=== PATIENT | female | born 1995 | race Caucasian/White ===

== ENCOUNTER 2016-09-24 10:39 | Emergency (ER) | payer BC, OTHER ==
[2016-09-24] MEDS ORDERED: Sodium Chloride 0.9% 10 ML Syringe FLUSH PRN (11:26)
[2016-09-24] MEDS ORDERED: Ketorolac 30 MG/ML SDV IVPUSH ONE (11:26)
[2016-09-24] MEDS ORDERED: Sodium Chloride 0.9% 1,000 ML IV ONE (11:26)
[2016-09-24] MEDS ORDERED: Ondansetron 4 MG/2 ML SDV IVPUSH ONE (11:26)
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
[2016-09-24 13:10] VITALS: BP 104/62
== END 2016-09-24 13:05 | disposition home or self-care (01) ==
LOC: JD.ED 10:39 → MERGE 10:39 → JD.ED 13:05
DX: R11.2 Nausea with vomiting, unspecified (principal); F17.210 Nicotine dependence, cigarettes, uncomplicated; J45.909 Unspecified asthma, uncomplicated; Z79.899 Other long term (current) drug therapy
CPT/HCPCS: 36415; 80053; 80306; 81025; 85025; 96361; 96374; 96375; 99283; J1885; J2405; J7040; J7050; 99284

== ENCOUNTER 2017-11-04 10:03 | Emergency (ER) | payer OTHER ==
--- NOTE | 2017-11-04 11:02 | EDM.PDOC ---
ED HPI GENERAL MEDICAL PROBLEM - General Chief Complaint: Chest Pain Stated Complaint: CHEST PAIN Time Seen by Provider: 11/04/17 10:14 Source of Information: Reports: Patient History Limitations: Reports: No Limitations - History of Present Illness INITIAL COMMENTS - FREE TEXT/NARRATIVE: The patient presents with left sided chest pain. This started about 0930 this morning. The pain is sharp and she has tingling in her shoulder and arm. The pain is made worse but sitting up or taking a deep breath. She has no fever, chills, cough, abdominal pain, nausea or vomiting. She does have some mild shortness of breath. She has no history of DVT or PE. She has no swelling her her legs or pain. Onset: Sudden Duration: Hour(s): Location: Reports: Chest Quality: Reports: Sharp Severity: Moderate Improves with: Reports: Immobilization Worsens with: Reports: Breathing (and sitting up) Associated Symptoms: Reports: Chest Pain, Shortness of Breath. Denies: Cough, Fever/Chills, Nausea/Vomiting Left Chest Pain Score (Numeric/FACES): 8 - Related Data Allergies Allergy/AdvReac Type Severity Reaction Status Date / Time No Known Allergies Allergy Verified 09/24/16 10:52 Home Meds: Home Meds Albuterol Sulfate [Albuterol Sulfate HFA] 8.5 gm IH Q4H PRN #1 hfa.aer.ad [Rx] Cetirizine [ZyrTEC] 10 mg PO DAILY 10/24/13 [History] Past Medical History - Past Health History Medical/Surgical History: Denies Medical/Surgical History Respiratory History: Reports: Asthma - Infectious Disease History Infectious Disease History: Reports: Chicken Pox Social & Family History - Family History Family Medical History: Noncontributory - Tobacco Use Smoking Status *Q: Current Some Day Smoker Years of Tobacco use: 6 Packs/Tins Daily: 0.2 - Caffeine Use Caffeine Use: Reports: None - Recreational Drug Use Recreational Drug Use: No ED ROS GENERAL - Review of Systems Review Of Systems: See Below Constitutional: Reports: No Symptoms HEENT: Reports: No Symptoms Respiratory: Reports: Shortness of Breath Cardiovascular: Reports: Chest Pain Endocrine: Reports: No Symptoms GI/Abdominal: Reports: No Symptoms : Reports: No Symptoms Musculoskeletal: Reports: No Symptoms Skin: Reports: No Symptoms ED EXAM, GENERAL - Physical Exam Exam: See Below Exam Limited By: No Limitations General Appearance: Alert, No Apparent Distress Ears: Normal External Exam Nose: Normal Inspection Head: Atraumatic, Normocephalic Neck: Normal Inspection Respiratory/Chest: No Respiratory Distress, Lungs Clear, Normal Breath Sounds Cardiovascular: Regular Rate, Rhythm, No Edema, No Murmur GI/Abdominal: Soft, Non-Tender, No Organomegaly, No Mass Back Exam: Normal Inspection Extremities: Normal Inspection EKG INTERPRETATION EKG Date: 11/04/17 Time: 10:10 Rhythm: NSR Rate (Beats/Min): 60 Center: Normal P-Wave: Present QRS: Normal ST-T: Normal QT: Normal EKG Interpretation Comments: Sinus arrhythmia Course - Vital Signs Last Recorded V/S: Last Vital Signs Temp 98.2 F 11/04/17 10:08 Pulse 72 11/04/17 10:08 Resp 18 11/04/17 10:08 BP 129/78 11/04/17 10:08 Pulse Ox 100 11/04/17 10:08 - Orders/Labs/Meds Orders: Active Orders 24 hr Category Date Time Status Cardiac Monitoring [RC] . DIRECTED Care 11/04/17 10:30 Active EKG Documentation Completion [RC] STAT Care 11/04/17 10:31 Active Chest 2V [CR] Stat Exams 11/04/17 10:32 Taken Labs: Laboratory Tests 11/04/17 11/04/17 11/04/17 Range/Units 11:03 11:03 11:03 WBC 7.25 (3.98-10.04) K/mm3 RBC 4.80 (3.98-5.22) M/mm3 Hgb 14.5 (11.2-15.7) gm/L Hct 43.7 (34.1-44.9) % MCV 91.0 (79.4-94.8) fl MCH 30.2 (25.6-32.2) pg MCHC 33.2 (32.2-35.5) g/dl RDW Std Deviation 40.9 (36.4-46.3) fL Plt Count 312 (182-369) K/mm3 MPV 10.3 (9.4-12.3) fl Neut % (Auto) 60.0 (34.0-71.1) % Lymph % (Auto) 27.2 (19.3-51.7) % [place] % (Auto) 8.1 (4.7-12.5) % Eos % (Auto) 4.3 (0.7-5.8) Baso % (Auto) 0.4 (0.1-1.2) % Neut # (Auto) 4.35 (1.56-6.13) K/mm3 Lymph # (Auto) 1.97 (1.18-3.74) K/mm3 [place] # (Auto) 0.59 H (0.24-0.36) K/mm3 Eos # (Auto) 0.31 (0.04-0.36) K/mm3 Baso # (Auto) 0.03 (0.01-0.08) K/mm3 D-Dimer, Quantitative 0.40 (0.19-0.50) mg/L Sodium 140 (136-145) mEq/L Potassium 4.0 (3.5-5.1) mEq/L Chloride 105 (98-107) mEq/L Carbon Dioxide 25 (21-32) mEq/L Anion Gap 14.0 (5-15) BUN 16 (7-18) mg/dL Creatinine 0.8 (0.55-1.02) mg/dL Est Cr Clr Drug Dosing 98.41 mL/min Estimated GFR (MDRD) > 60 (>60) mL/min BUN/Creatinine Ratio 20.0 H (14-18) Glucose 93 (74-106) mg/dL Calcium 8.8 (8.5-10.1) mg/dL Total Bilirubin 0.4 (0.2-1.0) mg/dL AST 19 (15-37) U/L ALT 24 (14-59) U/L Alkaline Phosphatase 49 (46-116) U/L Troponin I < 0.017 (0.00-0.056) ng/mL Total Protein 7.0 (6.4-8.2) g/dl Albumin 3.8 (3.4-5.0) g/dl Globulin 3.2 gm/dL Albumin/Globulin Ratio 1.2 (1-2) - Re-Assessments/Exams Free Text/Narrative Re-Assessment/Exam: 11/04/17 11:02 I ordered an EKG, CXR and labs. Her EKG shows a sinus arrhythmia with no acute changes. 11/04/17 11:40 Her CXR looks good. Her CBC and CMP look good. Her troponin and D-dimer was negative. It appears she has pleurisy. I will have her take an antiinflammatory. Departure - Departure Time of Disposition: 11:45 Disposition: Home, Self-Care 01 Condition: Good Clinical Impression: Pleurisy Referrals: PCP,None [Primary Care Provider] - Lore Gomez PA-C [Physician Personal Secretary] - 1 Week Forms: ED Department Discharge, ED Return to Work/School Form Additional Instructions: Take motrin or aleve for pain. Rest today. Please return if you are worse. - My Orders Last 24 Hours: My Active Orders 11/04/17 10:30 Cardiac Monitoring [RC] . DIRECTED 11/04/17 10:31 EKG Documentation Completion [RC] STAT 11/04/17 10:32 Chest 2V [CR] Stat - Assessment/Plan Last 24 Hours: My Active Orders 11/04/17 10:30 Cardiac Monitoring [RC] . DIRECTED 11/04/17 10:31 EKG Documentation Completion [RC] STAT 11/04/17 10:32 Chest 2V [CR] Stat
[2017-11-04 12:23] VITALS: BP 110/73
--- NOTE | 2017-11-04 12:45 | CR ---
Chest: Two views of the chest were obtained. Comparison: No prior chest x-ray. Heart size and mediastinum are normal. Lungs are clear. Bony structures are unremarkable. Impression: 1. Nothing acute is seen on two-view chest x-ray. Diagnostic code #1
== END 2017-11-04 11:50 | disposition home or self-care (01) ==
LOC: JD.ED 10:03
DX: R09.1 Pleurisy (principal); J45.909 Unspecified asthma, uncomplicated; F17.210 Nicotine dependence, cigarettes, uncomplicated; Z79.899 Other long term (current) drug therapy
CPT/HCPCS: 36415; 71046; 71046-26; 80053; 84484; 85025; 85379; 93005; 99285-25

== ENCOUNTER 2020-06-05 00:35 | Emergency (ER) | payer OTHER, BC ==
[2020-06-05 00:53] VITALS: BP 123/75; PULSE 70
--- NOTE | 2020-06-05 01:38 | EDM.PDOC ---
ED HPI GENERAL MEDICAL PROBLEM - General Chief Complaint: Respiratory Problem Stated Complaint: SOB Time Seen by Provider: 06/05/20 00:50 Source of Information: Reports: Patient History Limitations: Reports: No Limitations - History of Present Illness INITIAL COMMENTS - FREE TEXT/NARRATIVE: Ms. Alexis is a very pleasant 24-year-old woman who now presents to the ED with dyspnea, but with a more complicated history. She states that she has been getting a sharp chest pain, felt in a discreet area just left of her sternum (she points with one finger), around this time of year for the past several years. When present, the pain is made worse if she inspires deeply, although is minimized with shallow breathing. She also feels better if she pulls her left breast upward, or if she leans back and leftward in her chair. He states that she has always been told that it is due to "pleurisy". The patient states she has a presumptive diagnosis of asthma since childhood, however, she has never seen a Serging Machine Operator [employer] and has never undergone pulmonary function testing. She takes albuterol by [facility] on an as-needed basis. She states that she was seen at the walk-in clinic on 05/10/2020 for dyspnea with wheezing, without cough or fever. At that time, she did not have any chest pain. She states that a D-dimer and chest x-ray were performed, both of which were reportedly normal. She was diagnosed with an asthma exacerbation and prescribed a refill of her albuterol. She then returned to the walk-in clinic 10 days later, on 05/20/2020, for stabbing central chest pain, the same chest pain that has troubled her for years. At that time, she did not have any dyspnea, wheezing, cough, or fever. She states that no tests were performed, and that she was again diagnosed with pleurisy. She was prescribed prednisone (she does not recall the dose) 1 tablet daily for 5 days. She states that her chest pain completely resolved for several days. The patient then followed up with her PCP 1 week ago (around 05/28/2020), again for the same retrosternal chest pain. Again, no associated dyspnea, wheezing, cough, or fever. She states that no tests were performed, but that she was again diagnosed with pleurisy, and again prescribed prednisone, this time 2 tablets QAM for 5 days. She states that the steroids again completely resolved her chest pain, and that she has not had any since. She now presents with dyspnea without wheezing, cough, or fever, since Wednesday morning, 06/03/2020. She states that she took an Equate allergy pill around 17:30 last evening, but no other medications. Here in the ED, the patient is found to be hemodynamically stable, afebrile, saturating 100% on room air. Other than her recurrent chest pain, dyspnea, and occasional wheezing, the salina ent denies having a recent fever, chills, sore throat, ear pain, nasal or sinus congestion, cough, palpitations, nausea, vomiting, constipation, diarrhea, abdominal pain, urinary symptoms, recent weight gain or weight loss, recent bloody bowel movements or black bowel movements, recent joint aches, headaches, or rashes. The patient's PCP is Demetra Pinzon NP. She has an appointment to meet Chuckie Shoemaker NP, this coming 06/10/2020, however, she was under the impression that he works with an Linting Machine Operator, whereas in fact, according to the [facility] website, he works in Gastroenterol ogy/Hepatology. She has not received an influenza vaccine this season, declined an offer to receive one here in the ED. Chest Pain Score (Numeric/FACES): 4 - Related Data Allergies Allergy/AdvReac Type Severity Reaction Status Date / Time No Known Allergies Allergy Verified 06/05/20 00:45 Home Meds: Home Meds Albuterol Sulfate [Albuterol Sulfate HFA] 8.5 gm IH Q4H PRN #1 [email or web address] 10/24/13 [Rx] Cetirizine [ZyrTEC] 10 mg PO DAILY 10/24/13 [History] Past Medical History HEENT History: Reports: Allergic Rhinitis Respiratory History: Reports: Asthma (suspected, not tested) - Infectious Disease History Infectious Disease History: Reports: Chicken Pox - Past Surgical History HEENT Surgical History: Reports: Adenoidectomy, Oral Surgery (dental extractions), Tonsillectomy Social & Family History - Tobacco Use Tobacco Use Status *Q: Former Tobacco User Years of Tobacco use: 10 Packs/Tins Daily: 0.2 Month/Year Tobacco Last Used: Quit Apr 2020 - Caffeine Use Caffeine Use: Reports: None - Alcohol Use Alcohol Use History: Yes Alcohol Use Frequency: Socially - Recreational Drug Use Recreational Drug Use: Yes Drug Use in Last 12 Months: No Recreational Drug Type: Reports: Marijuana/Hashish (last smoked in 2012) - Living Situation & Occupation Living situation: Reports: Single, Alone Occupation: Employed (Office) ED ROS GENERAL - Review of Systems Review Of Systems: Comprehensive ROS is negative, except as noted in HPI. ED EXAM, GENERAL - Physical Exam Exam: See Below Exam Limited By: No Limitations General Appearance: Alert, WD/WN, No Apparent Distress Eye Exam: Bilateral Eye: EOMI, Normal Inspection Ears: Normal External Exam, Hearing Grossly Normal Nose: Normal Inspection Throat/Mouth: Normal Inspection, Normal Lips, Normal Voice, No Airway Compromise Head: Atraumatic, Normocephalic Neck: Normal Inspection, Full Range of Motion Respiratory/Chest: No Respiratory Distress, Lungs Clear, Normal Breath Sounds, No Accessory Muscle Use. No: Decreased Breath Sounds, Crackles, Rhonchi, Wheezing, Stridor, Prolonged Expiration Cardiovascular: Normal Peripheral Pulses, Regular Rate, Rhythm, No Edema, No Gallop, No JVD, No Murmur, No Rub Peripheral Pulses: 3+: Radial (L), Radial (R) GI/Abdominal: Normal Bowel Sounds, Soft, Non-Tender, No Organomegaly, No Distention, No Abnormal Bruit, No Mass Back Exam: Normal Inspection, Full Range of Motion, NT Extremities: Normal Inspection, Normal Range of Motion, No Pedal Edema, Normal Capillary Refill Neurological: Alert, Oriented, Normal Cognition, No Motor/Sensory Deficits Psychiatric: Normal Affect Skin Exam: Warm, Dry, Intact, Normal Color, No Rash #1 Interpretation EKG Date: 06/05/20 Time: 02:05 Rhythm: NSR Rate (Beats/Min): 64 [place]: Normal P-Wave: Present QRS: Normal ST-T: Normal QT: Normal Comparison: No Change (11/04/2017) Course - Vital Signs Last Recorded V/S: Last Vital Signs Temp 36.7 C 06/05/20 00:45 Pulse 70 06/05/20 00:45 Resp 18 06/05/20 00:45 BP 123/75 06/05/20 00:45 Pulse Ox 100 02/03/21 00:45 - Orders/Labs/Meds Orders: Active Orders 24 hr Category Date Time Status EKG Documentation Completion [RC] STAT Care 06/05/20 01:15 Active Chest 2V [CR] Stat Exams 06/05/20 01:14 Taken Labs: Laboratory Tests 06/05/20 06/05/20 06/05/20 Range/Units 01:27 01:33 01:33 WBC 10.14 H (3.98-10.04) K/mm3 RBC 4.68 (3.98-5.22) M/mm3 Hgb 14.1 (11.2-15.7) gm/dl Hct 43.5 (34.1-44.9) % MCV 92.9 (79.4-94.8) fl MCH 30.1 (25.6-32.2) pg MCHC 32.4 (32.2-35.5) g/dl RDW Std Deviation 42.3 (36.4-46.3) fL Plt Count 288 (182-369) K/mm3 MPV 9.9 (9.4-12.3) fl Neutrophils % (Manual) 52 (40-60) % Band Neutrophils % 0 (0-10) % Lymphocytes % (Manual) 36 (20-40) % Atypical Lymphs % 0 % Monocytes % (Manual) 8 (2-10) % Eosinophils % (Manual) 4 (0.7-5.8) % Basophils % (Manual) 0 L (0.1-1.2) Platelet Estimate Adequate Microcytosis Store Product Demonstrator RBC Morph Comment Normal D-Dimer, Quantitative (0.19-0.50) mg/L Puncture Site Rt radial ABG pH 7.42 (7.35-7.45) ABG pCO2 37.7 (35.0-45.0) mmHg ABG pO2 86.0 (80.0-100.0) mmHg ABG HCO3 24.0 (22.0-26.0) meq/L ABG O2 Saturation 97.3 H (96.0-97.0) % ABG Base Excess 0.3 (-2-2.0) Nino Test Positive O2 Delivery Device Room air Sodium 140 (136-145) mEq/L Potassium 4.0 (3.5-5.1) mEq/L Chloride 105 (98-107) mEq/L Carbon Dioxide 29 (21-32) mEq/L Anion Gap 10.0 (5-15) BUN 11 (7-18) mg/dL Creatinine 0.8 (0.55-1.02) mg/dL Est Cr Clr Drug Dosing 96.73 mL/min Estimated GFR (MDRD) > 60 (>60) mL/min BUN/Creatinine Ratio 13.8 L (14-18) Glucose 95 (74-106) mg/dL Calcium 8.9 (8.5-10.1) mg/dL Magnesium 2.3 (1.8-2.4) mg/dl Total Bilirubin 0.6 (0.2-1.0) mg/dL AST 17 (15-37) U/L ALT 28 (14-59) U/L Alkaline Phosphatase 32 L (46-116) U/L Troponin I < 0.017 (0.00-0.056) ng/mL C-Reactive Protein < 0.2 (<1.0) mg/dL NT-Pro-B Natriuret Pep (0-125) pg/mL Total Protein 6.8 (6.4-8.2) g/dl Albumin 3.8 (3.4-5.0) g/dl Globulin 3.0 gm/dL Albumin/Globulin Ratio 1.3 (1-2) TSH 3rd Generation 1.915 (0.358-3.74) uIU/mL HCG, Quant mIU/mL Influenza Type A RNA (NEGATIVE) Influenza Type B RNA (NEGATIVE) SARS-CoV-2 RNA (JUAN) (NEGATIVE) 06/05/20 06/05/20 06/05/20 Range/Units 01:33 01:33 01:33 WBC (3.98-10.04) K/mm3 RBC (3.98-5.22) M/mm3 Hgb (11.2-15.7) gm/dl Hct (34.1-44.9) % MCV (79.4-94.8) fl MCH (25.6-32.2) pg MCHC (32.2-35.5) g/dl RDW Std Deviation (36.4-46.3) fL Plt Count (182-369) K/mm3 MPV (9.4-12.3) fl Neutrophils % (Manual) (40-60) % Band Neutrophils % (0-10) % Lymphocytes % (Manual) (20-40) % Atypical Lymphs % % Monocytes % (Manual) (2-10) % Eosinophils % (Manual) (0.7-5.8) % Basophils % (Manual) (0.1-1.2) Platelet Estimate Microcytosis RBC Morph Comment D-Dimer, Quantitative < 0.19 L (0.19-0.50) mg/L Puncture Site ABG pH (7.35-7.45) ABG pCO2 (35.0-45.0) mmHg ABG pO2 (80.0-100.0) mmHg ABG HCO3 (22.0-26.0) meq/L ABG O2 Saturation (96.0-97.0) % ABG Base Excess (-2-2.0) Nino Test O2 Delivery Device Sodium (136-145) mEq/L Potassium (3.5-5.1) mEq/L Chloride (98-107) mEq/L Carbon Dioxide (21-32) mEq/L Anion Gap (5-15) BUN (7-18) mg/dL Creatinine (0.55-1.02) mg/dL Est Cr Clr Drug Dosing mL/min Estimated GFR (MDRD) (>60) mL/min BUN/Creatinine Ratio (14-18) Glucose (74-106) mg/dL Calcium (8.5-10.1) mg/dL Magnesium (1.8-2.4) mg/dl Total Bilirubin (0.2-1.0) mg/dL AST (15-37) U/L ALT (14-59) U/L Alkaline Phosphatase (46-116) U/L Troponin I (0.00-0.056) ng/mL C-Reactive Protein (<1.0) mg/dL NT-Pro-B Natriuret Pep 8 (0-125) pg/mL Total Protein (6.4-8.2) g/dl Albumin (3.4-5.0) g/dl Globulin gm/dL Albumin/Globulin Ratio (1-2) TSH 3rd Generation (0.358-3.74) uIU/mL HCG, Quant 2.0 mIU/mL Influenza Type A RNA (NEGATIVE) Influenza Type B RNA (NEGATIVE) SARS-CoV-2 RNA (JUAN) (NEGATIVE) 06/05/20 Range/Units 01:38 WBC (3.98-10.04) K/mm3 RBC (3.98-5.22) M/mm3 Hgb (11.2-15.7) gm/dl Hct (34.1-44.9) % MCV (79.4-94.8) fl MCH (25.6-32.2) pg MCHC (32.2-35.5) g/dl RDW Std Deviation (36.4-46.3) fL Plt Count (182-369) K/mm3 MPV (9.4-12.3) fl Neutrophils % (Manual) (40-60) % Band Neutrophils % (0-10) % Lymphocytes % (Manual) (20-40) % Atypical Lymphs % % Monocytes % (Manual) (2-10) % Eosinophils % (Manual) (0.7-5.8) % Basophils % (Manual) (0.1-1.2) Platelet Estimate Microcytosis RBC Morph Comment D-Dimer, Quantitative (0.19-0.50) mg/L Puncture Site ABG pH (7.35-7.45) ABG pCO2 (35.0-45.0) mmHg ABG pO2 (80.0-100.0) mmHg ABG HCO3 (22.0-26.0) meq/L ABG O2 Saturation (96.0-97.0) % ABG Base Excess (-2-2.0) Nino Test O2 Delivery Device Sodium (136-145) mEq/L Potassium (3.5-5.1) mEq/L Chloride (98-107) mEq/L Carbon Dioxide (21-32) mEq/L Anion Gap (5-15) BUN (7-18) mg/dL Creatinine (0.55-1.02) mg/dL Est Cr Clr Drug Dosing mL/min Estimated GFR (MDRD) (>60) mL/min BUN/Creatinine Ratio (14-18) Glucose (74-106) mg/dL Calcium (8.5-10.1) mg/dL Magnesium (1.8-2.4) mg/dl Total Bilirubin (0.2-1.0) mg/dL AST (15-37) U/L ALT (14-59) U/L Alkaline Phosphatase (46-116) U/L Troponin I (0.00-0.056) ng/mL C-Reactive Protein (<1.0) mg/dL NT-Pro-B Natriuret Pep (0-125) pg/mL Total Protein (6.4-8.2) g/dl Albumin (3.4-5.0) g/dl Globulin gm/dL Albumin/Globulin Ratio (1-2) TSH 3rd Generation (0.358-3.74) uIU/mL HCG, Quant mIU/mL Influenza Type A RNA Negative (NEGATIVE) Influenza Type B RNA Negative (NEGATIVE) SARS-CoV-2 RNA (JUAN) Negative (NEGATIVE) - Re-Assessments/Exams Free Text/Narrative Re-Assessment/Exam: 06/05/20 01:18 The patient expressed frustration over the recurrence of her symptoms, either chest pain or dyspnea, with a presumptive diagnosis of pleurisy, but with no real answers as to the cause. She was initially somewhat upset. I have therefore ordered a rather extensive work-up to see if we can arrive at an answer, including numerous blood tests, an ABG, a swab for the SARS-CoV-2 virus and influenza virus, a chest x-ray, and an ECG. 06/05/20 02:46 Two-view chest radiograph appears to be grossly normal. The cardiac silhouette is within normal limits. No pulmonary vascular congestion. No pleural effusions. No focal infiltrate. No pneumothorax. Comparison is made with 2 prior 2-view chest radiographs dated 11/04/2017 and 10/24/2413, both of which were interpreted as unremarkable. Formal read per the Radiologist pending. The patient's CBC is remarkable for a WBC count slightly elevated at 10.14, but with 0% bandemia, and the remainder of her CBC being unremarkable. Her CMP is unremarkable. Her magnesium level is within normal limits at 2.3. Her TSH is within normal limits at 1.915. Her quantitative hCG is within normal limits at 2.0. Her CRP is undetectably low. Her troponin is undetectably low. Her pro-BNP is within normal limits at 8. Her D-dimer is undetectably low. Her ABG demonstrates an acute primary respiratory alkalosis with appropriately compensated metabolic acidosis. Her swab for the SARS-CoV-2 virus and the influenza virus are both negative. 06/05/20 03:09 Test results discussed with the patient. As above, today's work-up was entirely unremarkable, with the exception of the ABG finding of respiratory alkalosis with compensatory metabolic acidosis. Explained to the patient that this indic ates that she is hyperventilating. I explained that hyperventilation is usually due to anxiety, although other medical causes are known, including pain, a head injury with increased intracranial pressure, metabolic acidosis, DKA, uremia, salicylate toxicity, hypocalcemia, hypoglycemia, hyperthyroidism, liver failure, , severe anemia, sepsis, acute coronary event, sympathomimetic toxidrome, organic central nervous system disorders, pneumothorax, pneumonia, dysrhythmia, PE, and CHF. In the patient's case, these have been ruled out, therefore her hyperventilation is most likely due to anxiety. The patient agreed, stating that she has been having some trouble sleeping, often waking up feeling anxious. With respect to the patient's current dyspnea, I suspect that it is due to anxie ty/hyperventilation, but not due to asthma, since she is not wheezing or coughing. With respect to the cause of the patient's dyspnea when she is wheezing, she may have asthma, although it could be due to something else, as well. I recommended that she undergo pulmonary function test, which can be arranged for by her PCP. With respect to the patient's intermittent chest pain, I suspect that it is due to a spasm of an intercostal muscle. I explained why it cannot be due to pleurisy, as there is no pleura in the area that the patient indicates that she has experienced pain. If this occurs in the future, I recommended that she try a muscle relaxant with ibuprofen. Since the midlevel that the patient is scheduled to see this coming Wednesday is not an Linting Machine Operator, as she intended, I will refer her to an Linting Machine Operator in [place]. Departure - Departure Time of Disposition: 03:13 Disposition: Home, Self-Care 01 Condition: Good Clinical Impression: Dyspnea, Hyperventilation syndrome - Discharge Information *PRESCRIPTION DRUG MONITORING PROGRAM REVIEWED*: Not Applicable *COPY OF PRESCRIPTION DRUG MONITORING REPORT IN PATIENT SLICK: Not Applicable Referrals: Demetra Pinzon NP [Primary Care Provider] - Leanne Giraldo MD [Ordering Only Provider] - Forms: ED Department Discharge Additional Instructions: You were seen in the emergency room for shortness of breath, but with a history of occasional shortness of breath with wheezing, and, at other times, recurrent left of center chest pain. Work-up in the ER included numerous blood tests, an arterial blood gas (ABG), a swab for both the SARS-CoV-2 virus and the influenza virus, a chest x-ray, and an ECG. Your ABG found that you were hyperventilating. Hyperventilation is usually caused by anxiety, but can be caused by a number of medical conditions, including pain, a head injury with increased intracranial pressure, metabolic acidosis, DKA, uremia, salicylate toxicity, hypocalcemia, hypoglycemia, hyperthyroidism, liver failure, , severe anemia, sepsis, acute coronary event, sympathomimetic toxidrome, organic central nervous system disorders, pneumothorax, pneumonia, dysrhythmia, PE, and CHF. In your case, all of these have been ruled out, therefore, by a process of illumination, your hyperventilation is most likely due to anxiety. We recommend that you follow-up with your PCP, Demetra Pinzon NP, to discuss treatment options for anxiety. The remainder of your work-up was completely unremarkable. You do not have pneumonia, COVID-19, influenza, or evidence for any other type of infection. You do not have a collapsed lung. You have not suffered a recent heart damage. You are not suffering from congestive heart failure. You do not have a blood clot in your lungs. You are not hyperthyroid. You are not . With respect to your shortness of breath when you are wheezing, that may or may not be due to asthma. We recommend that you undergo pulmonary function tests to determine whether or not you have asthma. This can also be arranged for by your PCP, Demetra Pinzon NP. With respect to your intermittent chest pain, we suspect that it is due to a spasm of an intercostal muscle. It is NOT due to pleurisy. If it happens again, we recommend treatment to include a muscle relaxant and NSAID, such as Norflex and ibuprofen. If you would like to follow-up with an Linting Machine Operator (who can also arrange for pulmonary function tests), please follow-up with Dr. Leanne Giraldo in [place]. If any other problems, please do not hesitate to return to the ER. Sepsis Event Note (ED) - Evaluation Sepsis Screening Result: No Definite Risk - Focused Exam Vital Signs: Vital Signs Temp Pulse Resp BP Pulse Ox 06/05/20 00:45 36.7 C 70 18 123/75 100 - My Orders Last 24 Hours: My Active Orders 06/05/20 01:14 Chest 2V [CR] Stat 06/05/20 01:15 EKG Documentation Completion [RC] STAT - Assessment/Plan Last 24 Hours: My Active Orders 06/05/20 01:14 Chest 2V [CR] Stat 06/05/20 01:15 EKG Documentation Completion [RC] STAT
[2020-06-05 02:22] LABS: CORONAVIRUS COVID-19 NAA NEGATIVE (NEGATIVE)
--- NOTE | 2020-06-05 08:33 | CR ---
Chest: 2 views of the chest were obtained. Comparison: Prior chest x-ray of 11/04/17. Heart size and mediastinum are normal. Lungs are clear with no acute parenchymal change. Bony structures are unremarkable. Impression: 1. Nothing acute is seen on 2 view chest x-ray. Diagnostic code #1
== END 2020-06-05 03:30 | disposition home or self-care (01) ==
LOC: JD.ED 00:35 → SUPCPDRO 00:35 → JD.ED 03:30
DX: F45.8 Other somatoform disorders (principal); Z87.891 Personal history of nicotine dependence; Z20.822 Contact with and (suspected) exposure to COVID-19
CPT/HCPCS: 0240U; 36415; 36600; 71046; 80053; 82803; 83735; 83880; 84443; 84484; 84702; 85007; 85027; 85379; 86140; 93005; 99285; 93010; 99283

== ENCOUNTER 2020-11-17 11:36 | Emergency (ER) | payer OTHER, BC ==
[2020-11-17] MEDS ORDERED: diphenhydrAMINE 50 MG/ML SDV IVPUSH ONE (12:06)
[2020-11-17] MEDS ORDERED: methylPREDNISolone Sodium Succinate 125 MG/2 ML SDV IVPUSH ONE (12:06)
[2020-11-17] MEDS ORDERED: Sodium Chloride 0.9% 10 ML Syringe FLUSH PRN (12:06)
[2020-11-17] MEDS ORDERED: Famotidine 20 MG/2 ML SDV IVPUSH ONE (12:06)
[2020-11-17 12:07] VITALS: BP 154/88; PULSE 88
[2020-11-17] MEDS ORDERED: LORazepam 2 MG/ML SDV IVPUSH ONE (12:51)
--- NOTE | 2020-11-17 15:07 | EDM.PDOC ---
ED HPI GENERAL MEDICAL PROBLEM - General Chief Complaint: Allergic Reaction Stated Complaint: POSS ALLERGIC REACTION Time Seen by Provider: 11/17/20 12:07 Source of Information: Reports: Patient History Limitations: Reports: No Limitations - History of Present Illness INITIAL COMMENTS - FREE TEXT/NARRATIVE: The patient presents with an allergic reaction. She said she started having swelling in her throat and trouble breathing and hives on her arms. This has never happened before. She has no allergies to anything. She may have reacted to some eggs. She is anxious. She has no chest pain. She has no abdominal pain, nausea or vomiting. Onset: Sudden Duration: Minutes: Location: Reports: Upper Extremity, Left, Upper Extremity, Right Quality: Reports: Burning Severity: Mild Improves with: Reports: None Worsens with: Reports: None Associated Symptoms: Reports: Shortness of Breath. Denies: Chest Pain, Cough, Fever/Chills, Headaches, Nausea/Vomiting Treatments PERSON INVESTIGATOR: Reports: Other (see below) Other Treatments PERSON INVESTIGATOR: none - Related Data Allergies Allergy/AdvReac Type Severity Reaction Status Date / Time No Known Allergies Allergy Verified 06/05/20 00:45 Home Meds: Home Meds Albuterol Sulfate [Albuterol Sulfate HFA] 8.5 gm IH Q4H PRN #1 hfa.aer.ad 10/24/13 [Rx] Cetirizine [ZyrTEC] 10 mg PO DAILY 10/24/13 [History] predniSONE [Prednisone] 40 mg PO DAILY #10 tablet 11/17/20 [Rx] Past Medical History - Past Health History Medical/Surgical History: Denies Medical/Surgical History HEENT History: Reports: Allergic Rhinitis Respiratory History: Reports: Asthma Other Respiratory History: seasonal allergies - Infectious Disease History Infectious Disease History: Reports: Chicken Pox - Past Surgical History HEENT Surgical History: Reports: Adenoidectomy, Oral Surgery, Tonsillectomy Social & Family History - Family History Family Medical History: No Pertinent Family History - Tobacco Use Tobacco Use Status *Q: Current Every Day Tobacco User Years of Tobacco use: 10 Packs/Tins Daily: 0.2 - Caffeine Use Caffeine Use: Reports: Coffee - Recreational Drug Use Recreational Drug Use: No - Living Situation & Occupation Living situation: Reports: Single, Alone Occupation: Employed (Office) ED ROS ALLERGIC REACTION - Review of Systems Review Of Systems: See Below Constitutional: Reports: No Symptoms HEENT: Reports: No Symptoms Respiratory: Reports: Shortness of Breath Cardiovascular: Reports: No Symptoms Endocrine: Reports: No Symptoms GI/Abdominal: Reports: No Symptoms : Reports: No Symptoms Skin: Reports: Urticaria ED EXAM GENERAL NO PERIP PULSE - Physical Exam Exam: See Below Exam Limited By: No Limitations General Appearance: Alert, No Apparent Distress Ears: Normal External Exam Nose: Normal Inspection Throat/Mouth: Normal Inspection Head: Atraumatic, Normocephalic Neck: Normal Inspection Respiratory/Chest: No Respiratory Distress, Lungs Clear, Normal Breath Sounds Cardiovascular: Regular Rate, Rhythm, No Edema, No Murmur GI/Abdominal: Soft, Non-Tender, No Organomegaly, No Mass Extremities: Other Skin Exam: Other (no rash now) #1 Interpretation EKG Date: 11/17/20 Time: 12:47 Rhythm: Other (sinus tachycardia) Rate (Beats/Min): 165 [place]: Normal P-Wave: Present QRS: Normal ST-T: Normal QT: Normal Course - Vital Signs Last Recorded V/S: Last Vital Signs Temp 98.0 F 11/17/20 12:05 Pulse 88 11/17/20 12:05 Resp 11 L 11/17/20 12:05 BP 154/88 H 11/17/20 12:05 Pulse Ox 100 11/17/20 12:05 - Orders/Labs/Meds Orders: Active Orders 24 hr Category Date Time Status Cardiac Monitoring [RC] . DIRECTED Care 11/17/20 12:43 Active EKG Documentation Completion [RC] STAT Care 11/17/20 12:43 Active Peripheral IV Care [RC] . DIRECTED Care 11/17/20 12:06 Active Chest 1V Frontal [CR] Stat Exams 11/17/20 12:44 Taken Sodium Chloride 0.9% [Saline Flush] Med 11/17/20 12:06 Active 10 ml FLUSH ASDIRECTED PRN Peripheral IV Insertion Adult [OM.PC] Routine Oth 11/17/20 12:06 Ordered Medication Orders Sodium Chloride (Sodium Chloride 0.9% 10 Ml Syringe) 10 ml FLUSH ASDIRECTED PRN PRN Reason: Keep Vein Open Last Admin: 11/17/20 12:51 Dose: 10 ml Documented by: HEATH Labs: Laboratory Tests 11/17/20 11/17/20 11/17/20 Range/Units 12:54 12:54 12:54 WBC 11.45 H (3.98-10.04) K/mm3 RBC 4.70 (3.98-5.22) M/mm3 Hgb 14.8 (11.2-15.7) gm/dl Hct 45.1 H (34.1-44.9) % MCV 96.0 H D (79.4-94.8) fl MCH 31.5 (25.6-32.2) pg MCHC 32.8 (32.2-35.5) g/dl RDW Std Deviation 43.9 (36.4-46.3) fL Plt Count 377 H D (182-369) K/mm3 MPV 10.0 (9.4-12.3) fl Neut % (Auto) 63.4 (34.0-71.1) % Lymph % (Auto) 24.7 (19.3-51.7) % Villalba % (Auto) 9.6 (4.7-12.5) % Eos % (Auto) 1.9 (0.7-5.8) Baso % (Auto) 0.3 (0.1-1.2) % Neut # (Auto) 7.25 H (1.56-6.13) K/mm3 Lymph # (Auto) 2.83 (1.18-3.74) K/mm3 [place] # (Auto) 1.10 H (0.24-0.36) K/mm3 Eos # (Auto) 0.22 (0.04-0.36) K/mm3 Baso # (Auto) 0.04 (0.01-0.08) K/mm3 Manual Slide Review Abnormal smear D-Dimer, Quantitative 0.24 (0.19-0.50) mg/L Sodium 146 H (136-145) mEq/L Potassium 3.4 L (3.5-5.1) mEq/L Chloride 108 H (98-107) mEq/L Carbon Dioxide 24 (21-32) mEq/L Anion Gap 17.4 H (5-15) BUN 11 (7-18) mg/dL Creatinine 0.8 (0.55-1.02) mg/dL Est Cr Clr Drug Dosing 95.89 mL/min Estimated GFR (MDRD) > 60 (>60) mL/min BUN/Creatinine Ratio 13.8 L (14-18) Glucose 95 (70-99) mg/dL Calcium 8.7 (8.5-10.1) mg/dL Total Bilirubin 0.3 (0.2-1.0) mg/dL AST 18 (15-37) U/L ALT 27 (14-59) U/L Alkaline Phosphatase 41 L (46-116) U/L Troponin I < 0.017 (0.00-0.056) ng/mL Total Protein 8.2 (6.4-8.2) g/dl Albumin 4.2 (3.4-5.0) g/dl Globulin 4.0 gm/dL Albumin/Globulin Ratio 1.1 (1-2) TSH 3rd Generation 1.002 (0.358-3.74) uIU/mL HCG, Qual (NEGATIVE) 11/17/20 Range/Units 12:54 WBC (3.98-10.04) K/mm3 RBC (3.98-5.22) M/mm3 Hgb (11.2-15.7) gm/dl Hct (34.1-44.9) % MCV (79.4-94.8) fl MCH (25.6-32.2) pg MCHC (32.2-35.5) g/dl RDW Std Deviation (36.4-46.3) fL Plt Count (182-369) K/mm3 MPV (9.4-12.3) fl Neut % (Auto) (34.0-71.1) % Lymph % (Auto) (19.3-51.7) % Villalba % (Auto) (4.7-12.5) % Eos % (Auto) (0.7-5.8) Baso % (Auto) (0.1-1.2) % Neut # (Auto) (1.56-6.13) K/mm3 Lymph # (Auto) (1.18-3.74) K/mm3 [place] # (Auto) (0.24-0.36) K/mm3 Eos # (Auto) (0.04-0.36) K/mm3 Baso # (Auto) (0.01-0.08) K/mm3 Manual Slide Review D-Dimer, Quantitative (0.19-0.50) mg/L Sodium (136-145) mEq/L Potassium (3.5-5.1) mEq/L Chloride (98-107) mEq/L Carbon Dioxide (21-32) mEq/L Anion Gap (5-15) BUN (7-18) mg/dL Creatinine (0.55-1.02) mg/dL Est Cr Clr Drug Dosing mL/min Estimated GFR (MDRD) (>60) mL/min BUN/Creatinine Ratio (14-18) Glucose (70-99) mg/dL Calcium (8.5-10.1) mg/dL Total Bilirubin (0.2-1.0) mg/dL AST (15-37) U/L ALT (14-59) U/L Alkaline Phosphatase (46-116) U/L Troponin I (0.00-0.056) ng/mL Total Protein (6.4-8.2) g/dl Albumin (3.4-5.0) g/dl Globulin gm/dL Albumin/Globulin Ratio (1-2) TSH 3rd Generation (0.358-3.74) uIU/mL HCG, Qual Negative (NEGATIVE) Meds: Medications Generic Name Dose Route Start Last Admin Trade Name Arelis PRN Reason Stop Dose Admin Sodium Chloride 10 ml 11/17/20 12:11/17/20 12:51 Sodium Chloride 0.9% 10 Ml Syringe FLUSH 10 ml ASDIRECTED PRN Administration Keep Vein Open Discontinued Medications Generic Name Dose Route Start Last Admin Trade Name Arelis PRN Reason Stop Dose Admin Diphenhydramine HCl 50 mg 11/17/20 12:06 11/17/20 12:27 Diphenhydramine 50 Mg/Ml Sdv IVPUSH 11/17/20 12:07 50 mg ONETIME ONE Administration Famotidine 20 mg 11/17/20 12:11/17/20 12:30 Famotidine 20 Mg/2 Ml Sdv IVPUSH 11/17/20 12:07 20 mg ONETIME ONE Administration Lorazepam 1 mg 11/17/20 12:51 11/17/20 13:05 Lorazepam 2 Mg/Ml Sdv IVPUSH 11/17/20 12:52 1 mg ONETIME ONE Administration Methylprednisolone Sodium Succinate 125 mg 11/17/20 12:06 11/17/20 12:23 Methylprednisolone Sodium Succinate 125 Mg/2 Ml Sdv IVPUSH 11/17/20 12:07 125 mg ONETIME ONE Administration - Re-Assessments/Exams Free Text/Narrative Re-Assessment/Exam: 11/17/20 15:06 I ordered an IV saline lock solu-medrol 125mg IV, benadryl 50mg IV, and pepcid 20mg IV. After getting this she became very anxious and her heart rate when up. I ordered and EKG, labs and some ativan. Her EKG shows a sinus tachycardia with no acute changes. 11/17/20 15:08 Her WBC was elevated at 11.45. Her D-dimer was normal at 0.24. Her Na was a little elevated at 146. Her K was a little low at 3.4. Her anion gap is elevated at 17.4. Her troponin is negative. Her TSH is negative along with her HCG. She is resting now. 11/17/20 15:13 She feels better. I will discharge her home on some prednisone, pepcid and benadryl. Departure - Departure Time of Disposition: 15:15 Disposition: Home, Self-Care 01 Condition: Good Clinical Impression: Allergic reaction Qualifiers: Encounter type: initial encounter Qualified Code(s): T78.40XA - Allergy, unspecified, initial encounter - Discharge Information *PRESCRIPTION DRUG MONITORING PROGRAM REVIEWED*: Not Applicable *COPY OF PRESCRIPTION DRUG MONITORING REPORT IN PATIENT SLICK: Not Applicable Prescriptions: predniSONE [Prednisone] 40 mg PO DAILY #10 tablet Referrals: Demetra Pinzon, ALVIN [Primary Care Provider] - 1 Week Forms: ED Department Discharge Additional Instructions: Take the prednisone daily for 5 days. Take pepcid 20mg daily for 1 week. Take benadryl every 6 hours as needed for any allergy symptoms. Follow up with Demetra within a week. Please return if you are worse. Sepsis Event Note (ED) - Evaluation Sepsis Screening Result: No Definite Risk - Focused Exam Vital Signs: Vital Signs Temp Pulse Resp BP Pulse Ox 11/17/20 12:05 98.0 F 88 11 L 154/88 H 100 - My Orders Last 24 Hours: My Active Orders 11/17/20 12:06 Peripheral IV Care [RC] . DIRECTED Sodium Chloride 0.9% [Saline Flush] 10 ml FLUSH ASDIRECTED PRN Peripheral IV Insertion Adult [OM.PC] Routine 11/17/20 12:43 Cardiac Monitoring [RC] . DIRECTED EKG Documentation Completion [RC] STAT 11/17/20 12:44 Chest 1V Frontal [CR] Stat - Assessment/Plan Last 24 Hours: My Active Orders 11/17/20 12:06 Peripheral IV Care [RC] . DIRECTED Sodium Chloride 0.9% [Saline Flush] 10 ml FLUSH ASDIRECTED PRN Peripheral IV Insertion Adult [OM.PC] Routine 11/17/20 12:43 Cardiac Monitoring [RC] . DIRECTED EKG Documentation Completion [RC] STAT 11/17/20 12:44 Chest 1V Frontal [CR] Stat
--- NOTE | 2020-11-17 16:12 | CR ---
Chest: Portable view of the chest was obtained in upright position. Comparison: Prior chest x-ray of 06/05/20. Heart size and mediastinum are normal. Lungs are clear with no acute parenchymal change seen. No discrete osseous abnormality is appreciated. Impression: 1. Nothing acute is seen on portable chest x-ray. Diagnostic code #1
== END 2020-11-17 15:30 | disposition home or self-care (01) ==
LOC: JD.ED 11:36
DX: T78.40XA Allergy, unspecified, initial encounter (principal); Z72.0 Tobacco use
CPT/HCPCS: 36415; 71045; 80053; 84443; 84484; 84703; 85025; 85379; 93005; 96374; 96375; 99285; J1200; J2060; J2930; J3490; 93010; 99284

== ENCOUNTER 2020-12-31 23:39 | Emergency (ER) | payer OTHER, BC ==
[2021-01-01 00:04] VITALS: BP 131/95; PULSE 68
--- NOTE | 2021-01-01 01:10 | EDM.PDOC ---
ED HPI GENERAL MEDICAL PROBLEM - General Chief Complaint: Respiratory Problem Stated Complaint: SOB/COUGH Time Seen by Provider: 01/01/21 00:33 Source of Information: Reports: Patient History Limitations: Reports: No Limitations - History of Present Illness INITIAL COMMENTS - FREE TEXT/NARRATIVE: Ms. Alexis is a very pleasant 25-year-old woman who now presents the ED stating that she has had dyspnea without wheezing but with an occasional nonproductive cough for the past 8 months, singultus with indigestion for the past 2 months, a headache on and off for the past 2 weeks, watery diarrhea for the past 10 days, central chest discomfort for 1 week, and on and off lower back pain. Her lower back pain is temporarily improved with chiropractic manipulation. She states that she was seen at the walk-in clinic last 12/24/2020, where blood work and an ECG were reportedly normal. She is scheduled to see a Process Server in [place] in January. She states that she came to the ED this morning because she is having difficulty sleeping with her symptoms. Here in the ED, the patient is found to be hemodynamically stable, afebrile, saturating 100% on room air. She appears to be relatively comfortable, in no acute distress. The patient denies having a recent fever, chills, sore throat, ear pain, nasal or sinus congestion, palpitations, nausea, vomiting, constipation, abdominal pain, urinary symptoms, recent weight gain or weight loss, recent bloody bowel movements or black bowel movements, recent joint aches, or rashes. The patient's PCP is Demetra Pinzon NP. Her Process Server is Dr. Franco Huffman. Her allergy midlevel is Chuckie Shoemaker NP. Right Chest Pain Score (Numeric/FACES): 3 - Related Data Allergies Allergy/AdvReac Type Severity Reaction Status Date / Time No Known Allergies Allergy Verified 06/05/20 00:45 Home Meds: Home Meds Albuterol Sulfate [Albuterol Sulfate HFA] 8.5 gm IH Q4H PRN #1 hfa.aer.ad 10/24/13 [Rx] Cetirizine [ZyrTEC] 10 mg PO DAILY 10/24/13 [History] predniSONE [Prednisone] 40 mg PO DAILY #10 tablet 07/18/21 [Rx] Past Medical History HEENT History: Reports: Allergic Rhinitis Respiratory History: Reports: Asthma (suspected, not PFT-tested) Gastrointestinal History: Reports: GERD (untreated) - Infectious Disease History Infectious Disease History: Reports: Chicken Pox - Past Surgical History HEENT Surgical History: Reports: Adenoidectomy, Oral Surgery (dental extractions), Tonsillectomy Social & Family History - Tobacco Use Tobacco Use Status *Q: Current Some Day Tobacco User - Caffeine Use Caffeine Use: Reports: Coffee - Alcohol Use Alcohol Use History: Yes Alcohol Use Frequency: Socially - Recreational Drug Use Recreational Drug Use: No - Living Situation & Occupation Living situation: Reports: Single, Alone Occupation: Employed ([employer]) ED ROS GENERAL - Review of Systems Review Of Systems: Comprehensive ROS is negative, except as noted in HPI. ED EXAM, GENERAL - Physical Exam Exam: See Below Exam Limited By: No Limitations General Appearance: Alert, WD/WN, No Apparent Distress Eye Exam: Bilateral Eye: EOMI, Normal Inspection Ears: Normal External Exam, Hearing Grossly Normal Nose: Normal Inspection Throat/Mouth: Normal Inspection, Normal Lips, Normal Voice, No Airway Compromise Head: Atraumatic, Normocephalic Neck: Normal Inspection, Full Range of Motion Respiratory/Chest: No Respiratory Distress, Lungs Clear, Normal Breath Sounds, No Accessory Muscle Use. No: Decreased Breath Sounds, Crackles, Rhonchi, Wheezing, Stridor, Prolonged Expiration Cardiovascular: Normal Peripheral Pulses, Regular Rate, Rhythm, No Edema, No Gallop, No JVD, No Murmur, No Rub Peripheral Pulses: 3+: Radial (L), Radial (R) GI/Abdominal: Normal Bowel Sounds, Soft, Non-Tender, No Organomegaly, No Distention, No Abnormal Bruit, No Mass Back Exam: Normal Inspection, Full Range of Motion, NT Extremities: Normal Inspection, Normal Range of Motion, No Pedal Edema, Normal Capillary Refill Neurological: Alert, Oriented, Normal Cognition, No Motor/Sensory Deficits Psychiatric: Normal Affect Skin Exam: Warm, Dry, Intact, Normal Color, No Rash Course - Vital Signs Last Recorded V/S: Last Vital Signs Temp 35.7 C L 12/31/20 23:58 Pulse 68 12/31/20 23:58 Resp 17 12/31/20 23:58 BP 131/95 H 12/31/20 23:58 Pulse Ox 100 12/31/20 23:58 - Orders/Labs/Meds Labs: Laboratory Tests 01/01/21 01/01/21 01/01/21 Range/Units 00:04 01:20 01:20 WBC 10.11 H (3.98-10.04) K/mm3 RBC 4.71 (3.98-5.22) M/mm3 Hgb 14.6 (11.2-15.7) gm/dl Hct 44.0 (34.1-44.9) % MCV 93.4 (79.4-94.8) fl MCH 31.0 (25.6-32.2) pg MCHC 33.2 (32.2-35.5) g/dl RDW Std Deviation 41.3 (36.4-46.3) fL Plt Count 293 D (182-369) K/mm3 MPV 10.3 (9.4-12.3) fl Neutrophils % (Manual) 58 (40-60) % Band Neutrophils % 0 (0-10) % Lymphocytes % (Manual) 33 (20-40) % Atypical Lymphs % 0 % Monocytes % (Manual) 8 (2-10) % Eosinophils % (Manual) 1 (0.7-5.8) % Basophils % (Manual) 0 L (0.1-1.2) Platelet Estimate Adequate RBC Morph Comment Normal Sodium 141 (136-145) mEq/L Potassium 3.6 (3.5-5.1) mEq/L Chloride 103 (98-107) mEq/L Carbon Dioxide 29 (21-32) mEq/L Anion Gap 12.6 (5-15) BUN 15 (7-18) mg/dL Creatinine 0.7 (0.55-1.02) mg/dL Est Cr Clr Drug Dosing 109.59 mL/min Estimated GFR (MDRD) > 60 (>60) mL/min BUN/Creatinine Ratio 21.4 H (14-18) Glucose 96 (70-99) mg/dL Calcium 10.1 (8.5-10.1) mg/dL Magnesium 2.0 (1.8-2.4) mg/dL Total Bilirubin 0.4 (0.2-1.0) mg/dL AST 16 (15-37) U/L ALT 28 (14-59) U/L Alkaline Phosphatase 38 L (46-116) U/L Total Protein 7.1 (6.4-8.2) g/dl Albumin 4.0 (3.4-5.0) g/dl Globulin 3.1 gm/dL Albumin/Globulin Ratio 1.3 (1-2) SARS-CoV-2 RNA (JUAN) Negative (NEGATIVE) - Re-Assessments/Exams Free Text/Narrative Re-Assessment/Exam: 01/01/21 01:05 As above, the patient has been experiencing dyspnea without wheezing but with an occasional nonproductive cough for the past 8 months, singultus with indigestion for the past 2 months, a headache on and off for the past 2 weeks, watery diarrhea for the past 10 days, 1 week of central chest discomfort, and on and off lower back pain. Her lower back pain is temporarily improved with chiropractic manipulation. She was seen at the walk-in clinic last Wednesday, where blood work and an ECG were reportedly normal. She is scheduled to see a Process Server in [place] in January. She presents to the ED this morning because she is having difficulty sleeping with her symptoms. She is afebrile, saturating 100% on room air, and her physical exam is completely normal. She is aware that we are not really capable of performing a diagnostic work-up, but requested that we check a chest x-ray. With her report of watery diarrhea, I also recommended that we check some blood work, and I ordered a swab for the SARS-CoV-2 virus prior to seeing her. 01/01/21 02:00 Two-view chest radiograph appears to be grossly normal. The cardiac silhouette is within normal limits. No pulmonary vascular congestion. No pleural effusions. No focal infiltrate. No pneumothorax. Formal read per the Radiologist pending. The patient's CBC is remarkable for slight leukocytosis of 10.11, but with 0% bandemia, and the remainder of her CBC being unremarkable. Her CMP is unremarkable. Her magnesium level is within normal limits at 2.0. Her swab for the SARS-CoV-2 virus is negative. 01/01/21 02:04 Test results discussed with the patient. As above, today's work-up is grossly unremarkable, and does not explain the cause of her symptoms. She stated that she is taking Singulair for her allergic rhinitis; I recommended that she begin taking a nonsedating antihistamine, such as cetirizine or fexofenadine, to see if that helps. Departure - Departure Time of Disposition: 02:05 Disposition: Home, Self-Care 01 Condition: Good Clinical Impression: Dyspnea, Chest discomfort, Headache, Diarrhea, Back ache, Indigestion, Nonproductive cough - Discharge Information *PRESCRIPTION DRUG MONITORING PROGRAM REVIEWED*: Not Applicable *COPY OF PRESCRIPTION DRUG MONITORING REPORT IN PATIENT SLICK: Not Applicable Instructions: Indigestion, [id number], Shortness of Breath, Adult, [id number], Cough, Adult, [id number], Nonspecific Chest Pain, Adult, [id number], Managing Chronic Back Pain, General Headache Without Cause, [id number], Diarrhea, Adult, [id number] Referrals: Demetra Pinzon NP [Primary Care Provider] - Chuckie Shoemaker NP [Ordering Only Provider] - Franco Huffman MD [Ordering Only Provider] - Forms: ED Department Discharge Additional Instructions: You were seen in the emergency room for shortness of breath with an occasional dry cough, burping with indigestion, a headache, watery diarrhea, chest discomfort, and lower back pain. Work-up in the ER included several blood tests, a swab for the SARS-CoV-2 virus, and a chest x-ray. Your entire work-up was unremarkable, and does not explain the cause of your symptoms. We recommend that you begin taking, in addition to Singulair, a nonsedating antihistamine, such as Mana (fexofenadine) or Zyrtec (cetirizine). We recommend that you follow-up with your Process Server, Dr. Franco Huffman, at your previously scheduled appointment in January. If any other problems, please do not hesitate to return to the ER. Sepsis Event Note (ED) - Evaluation Sepsis Screening Result: No Definite Risk
--- NOTE | 2021-01-01 08:11 | CR ---
Chest: 2 views of the chest were obtained. Comparison: Prior chest x-ray of 11/17/20. Heart size and mediastinum are normal. Lungs are clear with no acute parenchymal change. Bony structures show nothing acute. Impression: 1. Nothing acute is appreciated on 2 view chest x-ray. Diagnostic code #1
== END 2021-01-01 02:25 | disposition home or self-care (01) ==
LOC: JD.ED 23:39
DX: R07.89 Other chest pain (principal); R06.02 Shortness of breath; R51.9 Headache, unspecified; R19.7 Diarrhea, unspecified; M54.5 Low back pain; K30 Functional dyspepsia; J45.909 Unspecified asthma, uncomplicated; Z72.0 Tobacco use; Z20.822 Contact with and (suspected) exposure to COVID-19
CPT/HCPCS: 36415; 71046; 71046-26; 80053; 83735; 85007; 85027; 99283; 99285-25; U0002

== ENCOUNTER 2021-03-12 13:28 | Emergency (ER) | payer BC, OTHER ==
[2021-03-12 14:05] VITALS: BP 114/70; PULSE 75
[2021-03-12] MEDS ORDERED: diphenhydrAMINE 50 MG/ML SDV IVPUSH ONE (14:11)
[2021-03-12] MEDS ORDERED: methylPREDNISolone Sodium Succinate 125 MG/2 ML SDV IVPUSH ONE (14:11)
[2021-03-12] MEDS ORDERED: Famotidine 20 MG/2 ML SDV IVPUSH ONE (14:11)
--- NOTE | 2021-03-12 14:12 | EDM.PDOC ---
ED HPI GENERAL MEDICAL PROBLEM - General Chief Complaint: Allergic Reaction Stated Complaint: ALLERGIC REACTION Time Seen by Provider: 03/12/21 13:58 Source of Information: Reports: Patient History Limitations: Reports: No Limitations - History of Present Illness INITIAL COMMENTS - FREE TEXT/NARRATIVE: 25-year-old female presents the emergency department with complaints of symptoms of an allergic reaction to almonds. Patient states she has severely allergic to almonds however she states she ate some food a coworker brought into work this morning. A coworker told me there is no nuts in the food however when she took a bite she realized she had eaten almond. She states initially her tongue was tingling, she had some wheezing and her throat felt tight. However by the time she arrived in triage she states most of her symptoms have resolved however she states her throat still feels tight. Patient did not take any Benadryl or any other medications prior to arrival. She states she has a prescription for an EpiPen however she has not yet filled it. She denies any shortness of breath, nausea, vomiting or abdominal pain. - Related Data Allergies Allergy/AdvReac Type Severity Reaction Status Date / Time No Known Allergies Allergy Verified 06/05/20 00:45 Home Meds: Home Meds Famotidine [Pepcid] 20 mg PO DAILY #10 tab 03/12/21 [Rx] Fexofenadine/Pseudoephedrine [Mana-D 24 Hour Tablet] 1 tab PO DAILY 03/12/21 [History] Fluticasone Propionate [Flonase] 50 mg ALIX DAILY 03/12/21 [History] Montelukast [Singulair] 10 mg PO DAILY 03/12/21 [History] predniSONE [Prednisone] 40 mg PO DAILY #20 tablet 03/12/21 [Rx] Past Medical History - Past Health History Medical/Surgical History: Denies Medical/Surgical History HEENT History: Reports: Allergic Rhinitis Respiratory History: Reports: Asthma Other Respiratory History: seasonal allergies, was told had asthma-No PFT's done Gastrointestinal History: Reports: GERD TAG CLERK History: Reports: Other TAG CLERK History: Misscarriage 2019 - Infectious Disease History Infectious Disease History: Reports: Chicken Pox - Past Surgical History HEENT Surgical History: Reports: Adenoidectomy, Oral Surgery, Tonsillectomy Other HEENT Surgeries/Procedures: wisdom teeth extraction Social & Family History - Family History Family Medical History: No Pertinent Family History - Tobacco Use Tobacco Use Status *Q: Current Some Day Tobacco User Years of Tobacco use: 11 Packs/Tins Daily: 0.1 - Caffeine Use Caffeine Use: Reports: Coffee - Alcohol Use Days Per Week of Alcohol Use: 2 Number of Drinks Per Day: 4 Total Drinks Per Week: 8 - Recreational Drug Use Recreational Drug Use: No - Living Situation & Occupation Living situation: Reports: Single, Alone Occupation: Employed ([employer]) ED ROS ALLERGIC REACTION - Review of Systems Review Of Systems: Comprehensive ROS is negative, except as noted in HPI. ED EXAM GENERAL NO PERIP PULSE - Physical Exam Exam: See Below Exam Limited By: No Limitations General Appearance: Alert, WD/WN, Anxious Ears: Normal External Exam, Hearing Grossly Normal Nose: Normal Inspection Throat/Mouth: Normal Inspection, Normal Lips, Normal Teeth, Normal Gums, Normal Oropharynx, Normal Voice, No Airway Compromise Head: Atraumatic, Normocephalic Neck: Normal Inspection, Supple Respiratory/Chest: No Respiratory Distress, Lungs Clear, Normal Breath Sounds, No Accessory Muscle Use, Chest Non-Tender Cardiovascular: Normal Peripheral Pulses, Regular Rate, Rhythm, No Edema, No Murmur GI/Abdominal: Normal Bowel Sounds, Soft, Non-Tender, No Distention (Female) Exam: Deferred Rectal (Female) Exam: Deferred Back Exam: Normal Inspection Extremities: Normal Inspection Neurological: Alert, Oriented, Normal Cognition Psychiatric: Anxious Skin Exam: Warm, Dry, Intact, Normal Color, No Rash Lymphatic: No Adenopathy Course - Vital Signs Text/Narrative:: As stated above, patient presents after consuming almonds and some food and she is highly allergic. Patient is hemodynamically stable with O2 saturations at 100% at the time of my exam. Lung sounds are clear. I do not appreciate any swelling under her tongue or in her throat or her tongue or lips. Will give the patient IV Solu-Medrol, Pepcid and Benadryl. Will also obtain lab studies. Last Recorded V/S: Last Vital Signs Temp 98.8 F 03/12/21 14:02 Pulse 75 03/12/21 14:02 Resp 16 03/12/21 14:02 BP 114/70 03/12/21 14:02 Pulse Ox 99 03/12/21 14:02 - Orders/Labs/Meds Orders: Active Orders 24 hr Category Date Time Status Sodium Chloride 0.9% [Saline Flush] Med 03/12/21 14:18 Active 10 ml FLUSH ASDIRECTED PRN Saline Lock Insert [OM.PC] Stat Oth 03/12/21 14:18 Ordered Medication Orders Sodium Chloride (Sodium Chloride 0.9% 10 Ml Syringe) 10 ml FLUSH ASDIRECTED PRN PRN Reason: Keep Vein Open Last Admin: 03/12/21 14:39 Dose: 10 ml Documented by: BRYON Labs: Laboratory Tests 03/12/21 03/12/21 Range/Units 14:34 14:34 WBC 6.83 (3.98-10.04) K/mm3 RBC 4.36 (3.98-5.22) M/mm3 Hgb 13.6 (11.2-15.7) gm/dl Hct 41.8 (34.1-44.9) % MCV 95.9 H (79.4-94.8) fl MCH 31.2 (25.6-32.2) pg MCHC 32.5 (32.2-35.5) g/dl RDW Std Deviation 42.5 (36.4-46.3) fL Plt Count 318 (182-369) K/mm3 MPV 10.2 (9.4-12.3) fl Neut % (Auto) 57.5 (34.0-71.1) % Lymph % (Auto) 28.6 (19.3-51.7) % Long % (Auto) 10.1 (4.7-12.5) % Eos % (Auto) 3.4 (0.7-5.8) Baso % (Auto) 0.3 (0.1-1.2) % Neut # (Auto) 3.93 (1.56-6.13) K/mm3 Lymph # (Auto) 1.95 (1.18-3.74) K/mm3 Long # (Auto) 0.69 H (0.24-0.36) K/mm3 Eos # (Auto) 0.23 (0.04-0.36) K/mm3 Baso # (Auto) 0.02 (0.01-0.08) K/mm3 Sodium 138 (136-145) mEq/L Potassium 3.6 (3.5-5.1) mEq/L Chloride 103 (98-107) mEq/L Carbon Dioxide 30 (21-32) mEq/L Anion Gap 8.6 (5-15) BUN 11 (7-18) mg/dL Creatinine 0.7 (0.55-1.02) mg/dL Est Cr Clr Drug Dosing 114.01 mL/min Estimated GFR (MDRD) > 60 (>60) mL/min BUN/Creatinine Ratio 15.7 (14-18) Glucose 94 (70-99) mg/dL Calcium 8.2 L D (8.5-10.1) mg/dL Total Bilirubin 0.3 (0.2-1.0) mg/dL AST 23 (15-37) U/L ALT 37 (14-59) U/L Alkaline Phosphatase 36 L (46-116) U/L C-Reactive Protein <0.2 (<1.0) mg/dL Total Protein 7.0 (6.4-8.2) g/dl Albumin 3.9 (3.4-5.0) g/dl Globulin 3.1 gm/dL Albumin/Globulin Ratio 1.3 (1-2) Meds: Medications Generic Name Dose Route Start Last Admin Trade Name Freq PRN Reason Stop Dose Admin Sodium Chloride 10 ml 03/12/21 14:18 03/12/21 14:39 Sodium Chloride 0.9% 10 Ml Syringe FLUSH 10 ml ASDIRECTED PRN Administration Keep Vein Open Discontinued Medications Generic Name Dose Route Start Last Admin Trade Name Freq PRN Reason Stop Dose Admin Diphenhydramine HCl 50 mg 03/12/21 14:11 03/12/21 14:39 Diphenhydramine 50 Mg/Ml Sdv IVPUSH 03/12/21 14:12 50 mg ONETIME ONE Administration Famotidine 20 mg 03/12/21 14:11 03/12/21 14:39 Famotidine 20 Mg/2 Ml Sdv IVPUSH 03/12/21 14:12 20 mg ONETIME ONE Administration Methylprednisolone Sodium Succinate 125 mg 03/12/21 14:11 03/12/21 14:39 Methylprednisolone Sodium Succinate 125 Mg/2 Ml Sdv IVPUSH 03/12/21 14:12 125 mg ONETIME ONE Administration - Re-Assessments/Exams Free Text/Narrative Re-Assessment/Exam: 03/12/21 15:41 Lab work is unremarkable. Patient states she is feeling much better and does not have any shortness of breath or feeling as though her throat is closing or nausea vomiting. She states she is ready to be discharged home. Departure - Departure Time of Disposition: 15:41 Disposition: Home, Self-Care 01 Condition: Good Clinical Impression: Allergic reaction Qualifiers: Encounter type: initial encounter Qualified Code(s): T78.40XA - Allergy, unspecified, initial encounter - Discharge Information Prescriptions: Famotidine [Pepcid] 20 mg PO DAILY #10 tab predniSONE [Prednisone] 40 mg PO DAILY #20 tablet Referrals: Demetra Pinzon ADVERTISEMENT COMPOSITOR [Primary Care Provider] - Forms: ED Department Discharge Additional Instructions: You were seen in the emergency department today with complaints of allergic reaction after ingesting almonds. You were given IV steroids, Benadryl and Pep lisandro and these did seem to help. Lab studies were completed and these were all unremarkable. I have sent prescription to your pharmacy, [facility], for prednisone 40 mg daily for the next 10 days as well as Pepcid 20 mg daily for the next week. Take Benadryl 50 mg every 6 hours as needed. Should your condition worsen or change, do not hesitate returning to the emergency department. Sepsis Event Note (ED) - Focused Exam Vital Signs: Vital Signs Temp Pulse Resp BP Pulse Ox 03/12/21 14:02 98.8 F 75 16 114/70 99 - My Orders Last 24 Hours: My Active Orders 03/12/21 14:18 Sodium Chloride 0.9% [Saline Flush] 10 ml FLUSH ASDIRECTED PRN Saline Lock Insert [OM.PC] Stat - Assessment/Plan Last 24 Hours: My Active Orders 03/12/21 14:18 Sodium Chloride 0.9% [Saline Flush] 10 ml FLUSH ASDIRECTED PRN Saline Lock Insert [OM.PC] Stat
[2021-03-12] MEDS ORDERED: Sodium Chloride 0.9% 10 ML Syringe FLUSH PRN (14:18)
== END 2021-03-12 16:06 | disposition home or self-care (01) ==
LOC: JD.ED 13:28
DX: T78.1XXA Other adverse food reactions, not elsewhere classified, initial encounter (principal); R06.2 Wheezing; Z79.899 Other long term (current) drug therapy; Z72.0 Tobacco use
CPT/HCPCS: 36415; 80053; 85025; 86140; 96374; 96375; 99283; J1200; J2930; J3490

== ENCOUNTER 2022-08-29 07:00 | Inpatient (IN) | payer OTHER ==
[2022-08-29] MEDS ORDERED: Misoprostol 100 MCG Tab VAG PRN (07:09)
[2022-08-29] MEDS ORDERED: Nalbuphine 10 MG/0.5 ML Syringe IVPUSH PRN (07:09)
[2022-08-29] MEDS ORDERED: Sodium Chloride 0.9% 10 ML Syringe FLUSH PRN (07:09)
[2022-08-29] MEDS ORDERED: Ondansetron 4 MG/2 ML SDV IVPUSH PRN (07:09)
[2022-08-29] MEDS ORDERED: Oxytocin/Lactated Ringers 10 UNIT/1,000 ML BAG IV SCH ×2 (07:15)
[2022-08-29] MEDS: Misoprostol 25 MCG (1/4 of 100 MCG) Tab VAG PRN ×3 (08:32→16:36)
[2022-08-29] MEDS: Sodium Chloride 0.9% 10 ML Syringe FLUSH SCH ×2 (10:21→23:48)
[2022-08-29] MEDS ORDERED: ePHEDrine 50 MG/ML SDV IVPUSH PRN (12:11)
[2022-08-29] MEDS ORDERED: fentaNYL 100 MCG/2 ML SDV EPIDUR PRN (12:11)
[2022-08-29] MEDS ORDERED: diphenhydrAMINE 50 MG/ML SDV IVPUSH PRN (12:11)
[2022-08-29] MEDS ORDERED: Ampicillin 2 GM in Sodium Chloride 0.9% 100 ML IV ONE (19:59)
[2022-08-29] MEDS: Lactated Ringers 1,000 ML IV SCH ×2 (20:18→22:11)
[2022-08-29] MEDS: Bupivacaine/fentaNYL/NS 100 ML Bag EPIDUR PRN (20:59)
[2022-08-30] MEDS ORDERED: Ropivacaine 0.2% PF 2 MG/ML 20 ML SDV ONE
[2022-08-30] MEDS: Ampicillin 1 GM in Sodium Chloride 0.9% 100 ML IV SCH ×4 (00:07→11:56)
[2022-08-30] MEDS: Lactated Ringers 1,000 ML IV SCH ×2 (00:09→11:57)
[2022-08-30] MEDS: Bupivacaine/fentaNYL/NS 100 ML Bag EPIDUR PRN (05:49)
[2022-08-30] MEDS: Sodium Chloride 0.9% 10 ML Syringe FLUSH SCH (09:00)
[2022-08-30] MEDS ORDERED: fentaNYL 100 MCG/2 ML SDV EPIDUR PRN (11:45)
[2022-08-30] MEDS ORDERED: Ropivacaine 200 MG in Premix Bag 1 BAG EPIDUR SCH (11:45)
[2022-08-30] MEDS ORDERED: Citric Acid/Sodium Citrate Solution 30 ML Cup PO ONE (13:48)
[2022-08-30] MEDS ORDERED: ceFAZolin 2 GM in Sodium Chloride 0.9% 50 ML IV ONE (13:48)
[2022-08-30] MEDS ORDERED: Metoclopramide 10 MG/2 ML SDV IVPUSH ONE (13:48)
[2022-08-30] MEDS ORDERED: Azithromycin 500 MG in Sodium Chloride 0.9% 250 ML IV ONE (13:51)
[2022-08-30] MEDS ORDERED: Ondansetron 4 MG/2 ML SDV ONE (14:55)
[2022-08-30] MEDS ORDERED: Oxytocin 10 Units/1 ML SDV ONE ×2 (14:55→15:57)
[2022-08-30] MEDS ORDERED: Morphine PF 1 MG/ML Amp ONE (14:56)
[2022-08-30] MEDS ORDERED: Ketorolac 30 MG/ML SDV ONE (14:56)
[2022-08-30] MEDS ORDERED: ceFAZolin 2 GM Vial ONE (15:15)
[2022-08-30] MEDS ORDERED: diphenhydrAMINE 50 MG/ML SDV IVPUSH PRN ×2 (15:51→17:16)
[2022-08-30] MEDS ORDERED: Meperidine 50 MG/ML Vial IVPUSH PRN (15:51)
[2022-08-30] MEDS ORDERED: Ondansetron 4 MG/2 ML SDV IVPUSH PRN (15:51)
[2022-08-30] MEDS ORDERED: fentaNYL 100 MCG/2 ML SDV IVPUSH PRN (15:51)
[2022-08-30] MEDS ORDERED: Acetaminophen/oxyCODONE 325-5 MG Tab PO PRN ×2 (17:16)
[2022-08-30] MEDS ORDERED: Dextrose 5%-Lactated Ringers 1,000 ML IV SCH (17:16)
[2022-08-30] MEDS ORDERED: Ondansetron 4 MG/2 ML SDV IV PRN (17:16)
[2022-08-30] MEDS ORDERED: Docusate Sodium 100 MG Cap PO PRN (17:16)
[2022-08-30] MEDS ORDERED: Naloxone 0.4 MG/ML SDV IVPUSH PRN (17:16)
[2022-08-30] MEDS ORDERED: ePHEDrine 50 MG/ML SDV IVPUSH PRN (17:16)
[2022-08-30] MEDS: Ketorolac 30 MG/ML SDV IVPUSH SCH (22:04)
[2022-08-31] MEDS: Ketorolac 30 MG/ML SDV IVPUSH SCH ×2 (04:02→10:55)
[2022-08-31] MEDS: Ibuprofen 600 MG Tab PO PRN (20:46)
[2022-09-01] MEDS: Ibuprofen 600 MG Tab PO PRN (01:59)
[2022-09-01 08:16] VITALS: BP 118/65; PULSE 79
== END 2022-09-01 12:25 | disposition home or self-care (01) | DRG 787 ==
LOC: JD.OBCHECK 07:00 → JD.OB 07:00 → JD.OBCHECK 07:08 → JD.OB 07:09 → OBSVTOIN 08-30 15:16 → JD.OB 08-30 15:17
PROVIDERS: ADMIT Obstetrics & Gynecology; ATTEND Obstetrics & Gynecology
PROC: 10D00Z1 Extraction of Products of Conception, Low, Open Approach (ICD-10-PCS; principal; 2022-08-30)
PROC: 10907ZC Drainage of Amniotic Fluid, Therapeutic from Products of Conception, Via Natural or Artificial Opening (ICD-10-PCS; 2022-08-30)
PROC: 3E0P7VZ Introduction of Hormone into Female Reproductive, Via Natural or Artificial Opening (ICD-10-PCS; 2022-08-30)
PROC: 3E033VJ Introduction of Other Hormone into Peripheral Vein, Percutaneous Approach (ICD-10-PCS; 2022-08-30)
DX: O48.0 Post-term pregnancy (principal); O98.32 Other infections with a predominantly sexual mode of transmission complicating childbirth; O99.824 Streptococcus B carrier state complicating childbirth; O62.1 Secondary uterine inertia; O64.0XX0 Obstructed labor due to incomplete rotation of fetal head, not applicable or unspecified; A60.09 Herpesviral infection of other urogenital tract; Z3A.40 40 weeks gestation of pregnancy; Z37.0 Single live birth; Z87.891 Personal history of nicotine dependence
CPT/HCPCS: 01967; 36415; 51702; 59025; 85027; 86592; 86850; 86900; 86901; 94762; A9270-GY; J0290; J0456; J0690; J1200; J1885; J2274; J2300; J2405; J2590; J2765; J2795; J3010; J3490; J7050; J7120; J7121